=== PATIENT | female | born 1980 | race Asian ===

== ENCOUNTER 2021-02-18 10:47 | Outpatient (CLI) | payer BC, SELFPAY ==
[2021-02-18 12:02] LABS: Basophils Percent Auto 0.3 % (0.2-1.2); Eosinophils Absolute Auto 0.1 K/mm3 (0-0.3); Eosinophils Percent Auto 0.9 % (0-4.4); Hematocrit 42.8 % (37.0-47.0); Hemoglobin 13.9 g/dL (12.0-15.0); Immature Granulocyte Absolute 0.01 K/mm3 (0.00-0.031); Immature Granulocyte Percent A 0.2 % (0-0.5); Lymphocytes Absolute Auto 1.73 K/mm3 (0.9-3.2); Lymphocytes Percent Auto 29.5 % (18.3-44.2); Mean Corpuscular HGB Conc 32.5 g/dl (32-36); Mean Corpuscular Hemoglobin 29.7 pg (26-34); Mean Corpuscular Volume 91.5 fl (80-100); Mean Platelet Volume 9.3 fl (7.4-10.4); Monocytes Absolute Auto 0.5 K/mm3 (0.1-0.6); Neutrophils Absolute Auto 3.6 K/mm3 (1.3-6.7); Neutrophils Percent Auto 61.1 % (45.5-73.1); Platelet Count Result 255 k/mm3 (150-375); Red Blood Count 4.68 M/mm3 (4.2-5.4); Red Cell Distribution Width 13.2 % (11.5-14.5); White Blood Count 5.9 K/mm3 (4.5-10.0)
[2021-02-18 12:21] LABS: Alanine Aminotransferase 27 U/L (4-35); Albumin Level 4.4 g/dL (3.5-5.1); Alkaline Phosphatase 54 U/L (38-126); Anion Gap 6 mmol/L (8-16); Aspartate Amino Transferase 29 U/L (14-36); Bilirubin,Total 0.6 mg/dL (0.2-1.3); Blood Urea Nitrogen 10 mg/dL (7-17); Carbon Dioxide 27 mmol/L (22-30); Chloride 104 mmol/L (98-107); Cholesterol 247 mg/dL (0-200); Estimated Glomerular Filt Rate > 60; Glucose 85 mg/dL (65-110); HDL Direct 95 mg/dL; Potassium 3.8 mmol/L (3.4-5.0); Sodium 137 mmol/L (137-145); Triglycerides 69 mg/dL (<150)
[2021-02-18 12:33] LABS: LDL Cholesterol Direct 129 mg/dL
[2021-02-18 12:51] LABS: Thyroid Stimulating Hormone 0.889 uIU/mL (0.465-4.680)
[2021-02-18 13:17] LABS: Hemoglobin A1C 5.3 % (<5.7)
[2021-02-18 13:27] LABS: Folic Acid 15.3 ng/mL (2.76->20)
[2021-02-18 13:39] LABS: Iron 61 ug/dL (37-170)
[2021-02-18 13:48] LABS: Percent Iron Saturation 15 % (20-50)
[2021-02-18 14:14] LABS: Ferritin 7.96 ng/mL (6.24-137); Vitamin D 25 Hydroxy 41.3 ng/mL
[2021-02-20 04:13] LABS: Sex Hormone Binding Globulin 195 nmol/L (17-124)
[2021-02-21 09:34] LABS: DHEA-Sulfate 67 mcg/dL (19-231)
[2021-02-22 14:37] LABS: Testosterone Free 1.3 pg/mL (0.1-6.4); Testosterone Total 24 ng/dL (2-45)
[2021-02-23 15:05] LABS: FSH 4.8 mIU/mL (***); LH 1.8 mIU/mL (***); Prolactin 5.7 ng/mL (***)
[2021-02-28 04:26] LABS: Estradiol, Ultrasensitive 193 pg/mL
== END 2021-02-18 10:48 | disposition home or self-care (01) ==
PROVIDERS: PCP Family Medicine; Visit Provider Obstetrics & Gynecology
DX: N92.6 Irregular menstruation, unspecified (principal)
CPT/HCPCS: 36415; 80053; 80061; 82306; 82607; 82627; 82670; 82728; 82746; 83001; 83002; 83036; 83498; 83540; 83550; 84146; 84270; 84402; 84403; 84443; 85025

== ENCOUNTER 2024-09-06 11:48 | Emergency (ER) | payer BC, OTHER, SELFPAY ==
[2024-09-06 12:07] VITALS: BP 127/79; PULSE 72; RESP 16; TEMP 36.5; O2SAT 100
--- NOTE | 2024-09-06 12:25 | ED.GENADULT ---
HPI - General Adult General Chief complaint: Chest Pain Stated complaint: Chest Pain Source: patient Mode of arrival: ambulatory Limitations: no limitations History of Present Illness HPI narrative: Patient presents for evaluation of chest pain. Symptom onset yesterday morning. Pain caused her to wake from sleep. Throughout the day her pain subsided. She contacted her primary care provider who recommended she go to the emergency department. She did not follow through with that recommendation. She indicates she has had intermittent pain since that time, primarily with a dull sensation in the sternum and on the left side. On the way here today she experienced a sharp pain in her sternum. She rates her pain currently is 2-3 on a scale of 1-10. She denies any shortness of breath, leg swelling, cough. She had similar symptoms many years ago but never had it investigated. Her father had a stroke in the past. She does not smoke and denies illicit drug use. Related Data Home Medications ?Medication ?Instructions ?Recorded ?Confirmed ?Last Taken ?Type No Home Medications 09/06/24 09/06/24 Unknown History Allergies Allergy/AdvReac Type Severity Reaction Status Date / Time No Known Allergies Allergy Verified 09/06/24 11:59 Review of Systems Review of Systems: CONSTITUTIONAL: Denies fever, chills, or sweats. EYES: Denies visual changes, redness, or discharge. ENT: Denies rhinorrhea, congestion, sore throat, or otalgia. CARDIOVASCULAR: reports chest pain. Denies palpitations, or edema. RESPIRATORY: Denies cough or dyspnea. GASTROINTESTINAL: Denies abdominal pain, nausea, vomiting, or diarrhea. GENITOURINARY: Denies dysuria or hematuria. SKIN: Denies rash or itching. MUSCULOSKELETAL: Denies back pain, joint pain, or myalgia. NEUROLOGIC: Denies headache, numbness, dizziness, or weakness. PSYCHIATRIC: Denies anxiety or depression. [facility] Past Medical History Medical History No pertinent past medical history Surgical History Surgical History No pertinent past surgical history Family History Family History Father Cerebrovascular accident Social History Social History Smoking status: Never smoker Alcohol intake: current Alcohol use details: social Substance use: never Living arrangements: with family Gender identity (if verbalized by the patient): Female Sexual Orientation (if Verbalized by the Patient): Straight or Heterosexual Exam Narrative: GENERAL: Well-appearing, well-nourished, and in no acute distress. HEAD: Normocephalic, atraumatic. EYES: PERRLA and EOMI. ENT: Nares clear, no rhinorrhea or epistaxis. Mucous membranes moist. Oropharynx without tonsillar hypertrophy exudate or other lesions. Bilateral TMs pearly wisdom nonbulging NECK: Supple. No adenopathy or masses. No carotid bruits or JVD CHEST: Clear to auscultation. No respiratory distress. No wheezes rales or rhonchi HEART: Regular rate and rhythm. No murmur heard. Normal peripheral pulses. ABDOMEN: Soft, nontender, nondistended, normal active bowel sounds. EXTREMITIES: Normal range of motion. No edema. SKIN: Warm, dry, no rash. NEURO: No focal deficits. Alert and oriented x3. PSYCH: Normal mood and affect. Course Course Emergency Course: this is a 43-year-old female who presented for evaluation of chest pain. EKG showed sinus rhythm with right bundle branch block and left anterior fascicular block. I recommended she go to the hospital for further evaluation treatment. She is agreeable to this plan. [place] is her facility of choice. I contacted the emergency department at [facility] and spoke with provider Ghislaine Main, who indicated that Dr Bryant will accept pt for transfer there. Pt transferred via private vehicle. Level of Care: Express Care Visit Vital Signs Vital signs: Vital Signs Temperature 36.5 C 09/06/24 12:07 Pulse Rate 72 09/06/24 12:07 Respiratory Rate 16 09/06/24 12:07 Blood Pressure 127/79 09/06/24 12:07 Pulse Oximetry 100 09/06/24 12:07 Temperature 36.5 C 09/06/24 12:07 Pulse Rate 72 09/06/24 12:07 Respiratory Rate 16 09/06/24 12:07 Blood Pressure 127/79 09/06/24 12:07 Pulse Oximetry 100 09/06/24 12:07 Medical Decision Making Vital Signs Vital Signs: Vital Signs Temperature 36.5 C 09/06/24 12:07 Pulse Rate 72 09/06/24 12:07 Respiratory Rate 16 09/06/24 12:07 Blood Pressure 127/79 09/06/24 12:07 Pulse Oximetry 100 09/06/24 12:07 Temperature 36.5 C 09/06/24 12:07 Pulse Rate 72 09/06/24 12:07 Respiratory Rate 16 09/06/24 12:07 Blood Pressure 127/79 09/06/24 12:07 Pulse Oximetry 100 09/06/24 12:07 ECG Data EKG #1: ECG completion date: 09/06/24 ECG completion time: 12:04 Interpretation: sinus rhythm, rate 60, incomplete right bundle branch block, left anterior fascicular block. Discharge Plan Discharge Clinical Impression: Chest pain Patient Disposition: Acute Care Hospital Condition: Stable Instructions: Antibiotic Form, Chest Pain (ED) Patient Language: Hungarian Prescriptions: No Action No Home Medications Time of Disposition: 12:21
--- NOTE | 2024-09-06 12:31 | ECG_ITS ---
Test Date: 2024-09-06 12:04:33 Measurements Intervals Adin Rate: 60 P: 59 HI: 146 QRS: -56 QRSD: 104 T: 40 QT: 417 QTc: 418 Interpretive Statements SINUS RHYTHM LOW QRS VOLTAGE IN PRECORDIAL LEADS [QRS DEFLECTION < 1.0 mV IN CHEST LEADS] INCOMPLETE RIGHT BUNDLE BRANCH BLOCK [90+ ms QRS DURATION, TERMINAL R IN V1/V2, 40+ ms S IN I/aVL/V4/V5/V6] LEFT ANTERIOR FASCICULAR BLOCK [QRS AXIS <= -45, QR IN I, RS IN II] No previous ECG available for comparison Electronically Signed On 09-06-2024 14:14:22 CDT by Linda Wright
== END 2024-09-06 12:22 | disposition short-term general hospital (02) ==
PROVIDERS: Emergency Provider Nurse Practitioner
DX: R07.9 Chest pain, unspecified (principal); I45.2 Bifascicular block
CPT/HCPCS: 93005; 99213; G0463

== ENCOUNTER 2024-09-06 12:50 | Emergency (ER) | payer OTHER, SELFPAY ==
--- NOTE | ~2024-09-06 | XR_ITS ---
EXAMINATION: XR chest 2V DATE: 09/06/2024 13:12 INDICATION: Chest pain TECHNIQUE: PA and lateral views of the chest were obtained. COMPARISON: None FINDINGS: Subtle interstitial and airspace opacities in the right upper lung zone suspicious for pneumonia. Nip ple shadows project over the bilateral lower lung zones. No other airspace opacities, pulmonary edema , pleural effusion or pneumothorax. The cardiomediastinal silhouette is normal. Mild thoracolumbar de xtrocurvature. IMPRESSION: 1. Subtle opacities in the right upper lobe suspicious for pneumonia. Reviewed, dictated and finalized at location A.
--- NOTE | 2024-09-06 12:53 | ECG_ITS ---
Test Date: 2024-09-06 12:56:51 Measurements Intervals Garrett Rate: 57 P: 58 NV: 149 QRS: -51 QRSD: 97 T: 37 QT: 420 QTc: 412 Interpretive Statements SINUS BRADYCARDIA INCOMPLETE RIGHT BUNDLE BRANCH BLOCK [90+ ms QRS DURATION, TERMINAL R IN V1/V2, 40+ ms S IN I/aVL/V4/V5/V6] LEFT ANTERIOR FASCICULAR BLOCK [QRS AXIS <= -45, QR IN I, RS IN II] Compared to ECG 09/06/2024 12:04:33 Sinus rhythm no longer present Electronically Signed On 09-06-2024 14:15:00 CDT by Linda Wright
--- OUTSIDE RECORDS SUMMARY | 2024-09-06 12:53 | XMS_ITS | Clinical Summary ---
Author Organization [facility] Address [address] [place] [address] Phone Care Team Providers Care Registered Private Duty Nurse Name Role Phone Provider, None Primary Care Provider Unavailabl e Allergies No known active allergies Medications No known medications Social History Tobacco Use Types Packs/Day Years Used Date Smoking Tobacco: Never Alcohol Use Standard Drinks/Week Comments Yes 0 (1 standard drink = 0.6 oz pur e alcohol) Comments No Sex and Gender Information Value Date Recorded Sex Assigned at Not on file Legal Sex Female 8:01 AM HEART DOCTOR Gender Identity Not on file Sexual Orientation Not on file Last Filed Vital Signs Vital Sign Reading Time Taken Comments Blood Pressure 121/70 03/10/2016 9:38 AM HEART DOCTOR Pulse 64 03/10/2016 9:45 AM HEART DOCTOR Temperature 35.8 C (96.5 F) 03/10/2016 8:10 AM HEART DOCTOR Respiratory Rate 14 03/10/2016 8:10 AM HEART DOCTOR Oxygen Saturation 100% 03/10/2016 9:45 AM HEART DOCTOR Inhaled Oxygen Concentration - - Weight 53.5 kg (118 lb) 03/10/2016 8:10 AM HEART DOCTOR Height 157.5 cm (5' 2 ) 03/10/2016 8:10 AM HEART DOCTOR Body Mass Index 21.58 03/10/2016 8:10 AM HEART DOCTOR Plan of Treatment Not on file Care Teams Registered Private Duty Nurse Relationship Specialty Start Date End Date Provider, None [place] PCP - General 03/10/16
--- OUTSIDE RECORDS SUMMARY | 2024-09-06 12:53 | XMS_ITS | Encounter Summary ---
Author Organization [facility] Address [address] [place] [address] Care Team Providers Care Manager Data Warehouse Name Role Phone Kendall Ayala MD Primary Care Provider [phone] Reason for Visit * Reason Onset Date Comments Appointment Request 09/05/2024 Encounter Details Date Type Department Care Team (Late st Contact Info) Description 09/05/2024 Telephone [facility] Medical [facility] Multispecialty Care [facility] [address] [place] [address] [address] [place] [address] [place] [address] [place] [address] [address] [place], [place] [id number] Appointment Request Social History Tobacco Use Types Packs/Day Years Used Date Smoking Tobacco: Never Smokeless Tobacco: Never Comments:Counseled by Dr. Katlin uribe. Alcohol Use Standard Drinks/Week Comments Not Currently 1.7 (1 standard drink = 0.6 oz p ure alcohol) AUDIT-C Answer Date Recorded Q1: How often do you have a drink containing alc ohol? Monthly or less 02/14/2024 Q2: How many drinks containi ng alcohol do you have on a typical day when you are drinking? 1 or 2 02/14/2024 Q3: How often do you have si x or more drinks on one occasion? Never 02/14/2024 PHQ-2 Answer Date Recorded Patient Health Questionnaire-2 Score 0 02/14/2024 Comments No Sex and Gender Information Value Date Recorded Sex Assigned at Female 04/02/2024 8:01 AM DOUGH MIXING MACHINE OPERATOR Legal Sex Female 4:07 PM CDT Gender Identity Female 04/02/2024 8:01 AM DOUGH MIXING MACHINE OPERATOR Sexual Orientation Straight 04/02/2024 8: 01 AM DOUGH MIXING MACHINE OPERATOR documented as of this encounter Progress Notes * Rosa Rae - 09/05/2024 12:02 PM CDT This patient called requesting an appointment because she has been having chest pain since 4:[address] Kendall Ayala the patients provider have the patient go to the emergency room for evaluation. This was relayed to the patient and she voiced understanding. documented in this encounter Plan of Treatment Not on file documented as of this encounter Visit Diagnoses Not on filedocumented in this encounter Additional Health Concerns Assessment Noted Time PHQ-9 Depression Total Score: 0 02/14/20 24 6:31 PM CDT documented as of this encounter Care Teams Manager Data Warehouse Relationship Specialty Start Date End Date Kendall Ayala MD [address] [address] PCP - General INTERNAL MEDICINE 12/16/23 documented as of this encounter
--- OUTSIDE RECORDS SUMMARY | 2024-09-06 12:53 | XMS_ITS | Clinical Summary ---
Author Organization [facility] Address [address] [place] [address] Care Team Providers Care Caddymaster Name Role Phone Evangelista Waldrop MD Primary Care Provider [phone] Source Comments [facility],non-owned Affiliates and Associated Physician Practices is amultiple site organization consisting of ambulatory clinics and hospital sitesin [place], [place], [place] and [place]. This disclosure is being madepursuant to the Care Everywhere program and may not contain all information available regarding this patient. Last updated 18.[facility] [employer] Social History Tobacco Use Types Packs/Day Years Used Date Smoking Tobacco: Never Assessed Comments Unknown Sex and Gender Information Value Date Recorded Sex Assigned at Not on file Legal Sex Female 4:52 AM BINDER OPERATOR Gender Identity Not on file Sexual Orientation Not on file Plan of Treatment Health Maintenance Due Date Last Done Comments LIPID TESTING 1979 MAMMOGRAM 1979 HIV SCREENING 11/29/1994 HEPATITIS C SCREENING 11/25/1997 DTAP/TDAP/TD VACCINES (1 - Tdap) 11/29/1998 HEPATITIS B VACCINE (1 of 3 - 19+ 3-dose series) 11/29/1998 COVID-19 VACCINE (2023-2 5 season) 2024 DEPRESSION SCREENING 05/02/2024 INFLUENZA VACCINE (Season Ended) 2024 ZOSTER VACCINE (1 of 2) 11/29/2029 HIB VACCINE Aged Out No longer eligi ble based on patient's age to complete this topic HPV VACCINE Aged Out No longer eligi ble based on patient's age to complete this topic MENINGOCOCCAL (Group B) VACC INE SHARED DECISION-MAKING Aged Out No longer eligibl e based on patient's age to complete this topic MENINGOCOCCAL GROUPS A/C/Y/W VACCINE Aged Out No longer eligible b ased on patient's age to complete this topic PNEUMOCOCCAL VACCINE Aged Out No long er eligible based on patient's age to complete this topic Care Teams Caddymaster Relationship Specialty Start Date End Date Evangelista Waldrop MD [address] [facility] [address] [facility] [address] [place] [address] PCP - General Family Medicine 03/22/19
--- OUTSIDE RECORDS SUMMARY | 2024-09-06 12:53 | XMS_ITS | Encounter Summary ---
Author Organization [facility] Address [address] [place] [address] Care Team Providers Care Application Integration Architect Name Role Phone Kendall Ayala MD Primary Care Provider [phone] Reason for Visit * Reason Onset Date Comments Chest Pain 09/05/2024 Encounter Details Date Type Department Care Team (Late st Contact Info) Description 09/05/2024 Telephone [facility] Medical Group Multispecialty Care - [place] [address] [place] [address] [address] [place] [address] Kendall Ayala MD [address] [facility] [address] [place] [address] Chest Pain Social History Tobacco Use Types Packs/Day Years [...] Sex Assigned at Female 04/02/2024 8:01 AM DOCUMENT MANAGEMENT ANALYST Legal Sex Female 4:07 PM CDT Gender Identity Female 04/02/2024 8:01 AM DOCUMENT MANAGEMENT ANALYST Sexual Orientation Straight 04/02/2024 8: 01 AM DOCUMENT MANAGEMENT ANALYST documented as of this encounter Progress Notes * Lizeth Jo MA - 09/05/2024 11:54 AM CDT Rosa informed us that pt called in with chest pain since 2am this morning. After speaking with Dr. Ayala pt was informed to go to the ER and call us after d/c. documented in this encounter Plan of Treatment Not on file documented as of this encounter Visit Diagnoses Not on filedocumented in this encounter Additional Health Concerns Assessment Noted Time PHQ-9 Depression Total Score: 0 02/14/20 24 6:31 PM CDT documented as of this encounter Care Teams Application Integration Architect Relationship Specialty Start Date End Date Kendall Ayala MD [address] [facility] [address] [place] [address] PCP - General INTERNAL MEDICINE 12/16/23 documented as of this encounter
--- OUTSIDE RECORDS SUMMARY | 2024-09-06 12:53 | XMS_ITS | Encounter Summary ---
Author Organization [facility] Address [facility]ly [facility] [place] [address] Care Team Providers Care Corn Press Operator Name Role Phone Kendall Ayala MD Primary Care Provider [phone] Encounter Details Date Type Department Care Team (Late st Contact Info) Description 04/05/2024 [email or web address] Message Enc [facility] Medical Group Multispecialty Care - [address] [place] [address] Danal d/b/a [employer], [facility] Provider test result Social History Tobacco Use Types Packs/Day Years [...] Sex Assigned at Female 04/02/2024 8:01 AM HOUSE DESIGNER Legal Sex Female 4:07 PM CDT Gender Identity Female 04/02/2024 8:01 AM HOUSE DESIGNER Sexual Orientation Straight 04/02/2024 8: 01 AM HOUSE DESIGNER documented as of this encounter Plan of Treatment Not on file documented as of this encounter Visit Diagnoses Not on filedocumented in this encounter Additional Health Concerns Assessment Noted Time PHQ-9 Depression Total Score: 0 02/14/20 6:31 PM CDT documented as of this encounter Care Teams Corn Press Operator Relationship Specialty Start Date End Date Kendall Ayala MD [address] [address] PCP - General INTERNAL MEDICINE 12/16/23 documented as of this encounter
--- OUTSIDE RECORDS SUMMARY | 2024-09-06 12:53 | XMS_ITS | Clinical Summary ---
Author Organization [facility] Address [address] [place] [address] Phone Care Team Providers Care Stone Setter Apprentice Name Role Phone Unavailable Primary Care Provider Unavailabl e Allergies No known active allergies Medications ibuprofen (MOTRIN) 600 mg tablet Take 1 Tab by mouth every 6 hours as needed for Pain, Mild. 30 Tab 1 05/27/2013 Active Active Problems Problem Noted Date Diagnosed Date 05/25/2013 boy, for circ 05/25/2013 Nausea and vomiting 07/05/2011 Lightheadedness 07/05/2011 ASCUS on Pap smear 12/12/2009 Immunizations Immunization Administration Dates Next Due (ADACEL/BOOSTRIX)(10 YR UP) TDAP VACCINE, 0.5ML, IM 09/30/2011 Family History Medical History Relation Name Comments Healthy Brother 1 Healthy Brother 2 Healthy Brother 3 Healthy Brother 4 Healthy Daughter Hypertension Father Stroke Father Diabetes Maternal Grandmother Hypertension Maternal Grandmother SIDS Mother Diabetes Paternal Grandmother Healthy Sister 1 Healthy Sister 2 Healthy Son Relation Name Status Comments Brother 1 Alive Brother 2 Alive Brother 3 Alive Brother 4 Alive Daughter Alive Father Maternal Grandfather Maternal Grandmother Mother Alive Paternal Grandfather Paternal Grandmother Sister 1 Alive Sister 2 Alive Son Alive Social History Tobacco Use Types Packs/Day Years Used Date Smoking Tobacco: Never Smokeless Tobacco: Never Tobacco Cessation:Counseling Given: No Alcohol Use Standard Drinks/Week Comments Yes 0 (1 standard drink = 0.6 oz pur e alcohol) occasionally Comments No Sex and Gender Information Value Date Recorded Sex Assigned at Female 03/24/2024 11:19 AM ON LINE CSR Legal Sex Female 5:52 AM ON LINE CSR Gender Identity Female 03/24/2024 11:19 AM ON LINE CSR Sexual Orientation Not on file Occupation Industry Job Start Date Job End Date Not on file Not on file Not on file Not on file Last Filed Vital Signs Vital Sign Reading Time Taken Comments Blood Pressure 110/78 02/21/2017 1:56 PM CDT Pulse 68 05/27/2013 7:00 AM ON LINE CSR Temperature 36.7 C (98 F) 05/27/2013 7:00 AM ON LINE CSR Respiratory Rate 20 05/27/2013 7:00 AM ON LINE CSR Oxygen Saturation 100% 05/25/2013 12:59 AM ON LINE CSR Inhaled Oxygen Concentration - - Weight 54.4 kg (120 lb) 02/21/2017 1:56 PM CDT Height 157.5 cm (5' 2 ) 02/21/2017 1:56 PM CDT Body Mass Index 21.95 02/21/2017 1:56 PM CDT Plan of Treatment Health Maintenance Due Date Last Done Comments HEPATITIS B VACCINES (1 of 3 - 19+ 3-dose series) 11/29/1998 BREAST CANCER SCREENING 2019 PAP SMEAR 02/22/2020 02/21/2017, 03/0 07/2015, 07/03/2015, Additional history exists DTAP/TDAP/TD VACCINES (2 - Td or Tdap) 09/29/2021 09/30/2011 CERVICAL CANCER SCREENING 02/21/2022 HPV/Cotest (21-29) 02/21/2022 02/21/2017, 0 07/03/2015, 11/06/2012, Additional history exists HPV/Cotest (30-65) 02/21/2022 02/21/2017, 0 07/03/2015, 11/06/2012, Additional history exists INFLUENZA VACCINE (#1) 2023 HPV VACCINES Aged Out No longer eligi ble based on patient's age to complete this topic Procedures Procedure Name Priority Date/Time Associated Diagnosis Comments CERV/VAG CYTOPATH, THIN PREP AND HPV W/RFLX GENOTYPES 16, 18/45 Routine 02/21/2017 2:31 PM CDT Postcoital bleeding from Last 3 Months or Most Recently Relevant to Health Maintenance Results * (ABNORMAL) CERV/VAG CYTOPATH, THIN PREP AND HPV W/RFLX GENOTYPES 16, 18/45 (CP) (02/21/2017 2:31 PMCDT) CLINICAL INFORMATION SEE COMMENT 03/01/2017 10:55 AM CDT [facility] Comment:Routine exam LAST MENSTRUAL PERIOD SEE COMMENT 03/01/2017 10:55 AM CDT [facility] Comment:INFORMATION NOT PROV IDED PREV PAP: SEE COMMENT 03/01/2017 10:55 AM CDT [facility] Comment:07/03/2015 NIL PREV BX: SEE COMMENT 03/01/2017 10:55 AM CDT [facility] Comment:INFORMATION NOT PROV IDED SOURCE Endocervix 03/01/2017 10:55 AM CDT [facility] ADEQUACY: SEE COMMENT 03/01/2017 10:55 AM CDT [facility] Comment: Satisfactory for evaluation. Endocervical/transformation zone component present. Age and/or menstrual status not provided PAP INTERP SEE COMMENT 03/01/2017 10:55 AM CDT [facility] Comment:Negative for intraep ithelial lesion or malignancy. COMMENT SEE COMMENT 03/01/2017 10:55 AM CDT [facility] Comment: This Pap test has been evaluated with computer assisted technology. CAR WRECKER: SEE COMMENT 2016 10:55 AM CDT [facility] Comment: MMW, CT(ASCP) CT screening location: [place] [address] Administration MICHEL Maynard [facility] REVIEW CAR WRECKER: SEE COMMENT 03/01/2017 10:55 AM CDT [facility] Comment: MLO, CT(ASCP) CT screening location: [place] [address] Administration MICHEL Maynard146 HPV E6/E7 Detected(A) Not Detected 03/01/2017 10:55 AM CDT [facility] Comment: This test was performed using the APTIMA HPV Assay ([employer] This assay detects E6/E7 viral messenger RNA (mRNA) from 14 high-risk HPV types (16,18,31,33,35,39,45,51,52,56,58,59,66,68). Genital SWAB OF ENDOCERVIX / Unknown Collection / Unknown 02/21/2017 2:31 PM CDT 02/21/2017 5:27 PM CDT Narrative [facility] - 03/01/2017 10:55 AM CDT Performing Organization Information: Site ID: [id number] Name: [facility] Address: [address] [address] [place] [place] [address] Director: Jonel Pang MD Amanda Rodriguez NP PATHOLOGY/CYTOLOGY ORDERABLES F inal Result [facility] from Last 3 Months or Most Recently Relevant to Health Maintenance Insurance [facility] BLUE ACCESS/TRUE BLUE PPO Advance Directives For more information, please contact: [phone] * Full Code (Latest Code Status on File) Date Activated Date Inactivated Comments 05/25/2013 7:48 AM 05/27/2013 2:39 PM * Full Code Date Activated Date Inactivated Comments 05/25/2013 12:26 AM 05/25/2013 7:48 AM * Full Code Date Activated Date Inactivated Comments 05/24/2013 11:44 PM 05/25/2013 12:26 AM * Full Code Date Activated Date Inactivated Comments 09/29/2011 3:43 AM 10/01/2011 12:22 PM * Full Code Date Activated Date Inactivated Comments 09/29/2011 1:10 AM 09/29/2011 3:43 AM
--- OUTSIDE RECORDS SUMMARY | 2024-09-06 12:53 | XMS_ITS | Clinical Summary ---
Author Organization [facility] Address [facility] [place] [address] Care Team Providers Care Boilermaker Fitter Name Role Phone Kendall Ayala MD Primary Care Provider [phone] Allergies No known active allergies Medications Albuterol-Budeso nide (AIRSUPRA) 90-80 MCG/ACT AerosolIndicatio ns:Mild intermittent reactive airway disease without complication (HHS/HCC) Inhale 2 puffs into the lungs every 6 (six) hours. Airsupra is administered as a dose of 2 inhalations (puffs) as needed. Do not use more than 12 inhalations (6 doses) in a 24-hour period. 32.1 g 2 4 Active Active Problems No known active problems Encounters Date Type Department Care Team Description 09/05/[address] [place], [place] [id number] Kendall Ayala MD Appointment Request 09/05/2024 Telephone [facility] [place] [address] [facility] [address] [place] [address] Kendall Ayala MD Chest Pain from Last 3 Months Immunizations Immunization Administration Dates Next Due Influenza Adult (Generic) 07/13/2019 Tdap (Adacel) 03/14/2024 Tdap (Generic) 09/30/2011 Family History Medical History Relation Comments Hypertension Brother 1 Hypertension Brother 2 Hypertension Father Diabetes Maternal Aunt Arthritis Maternal Grandmother Alcohol Abuse Paternal Uncle Hypertension Sister Relation Status Comments Brother 1 Brother 2 Father Maternal Aunt Maternal Grandmother Paternal Uncle Sister Social History Tobacco Use Types Packs/Day Years Used Date Smoking Tobacco: Never Smokeless Tobacco: Never Tobacco Cessation:Counseling Given: Yes Comments:Counseled by Dr. Ayala. Alcohol Use Standard Drinks/Week Comments Not Currently [...] Sex Assigned at Female 04/02/2024 8:01 AM SALES AND MERCHANDISING ASSOCIATE Legal Sex Female 4:07 PM CDT Gender Identity Female 04/02/2024 8:01 AM SALES AND MERCHANDISING ASSOCIATE Sexual Orientation Straight 04/02/2024 8: 01 AM SALES AND MERCHANDISING ASSOCIATE Last Filed Vital Signs Vital Sign Reading Time Taken Comments Blood Pressure 128/76 03/14/2024 10:36 AM SALES AND MERCHANDISING ASSOCIATE Pulse 93 03/14/2024 10:36 AM SALES AND MERCHANDISING ASSOCIATE Temperature 36.5 C (97.7 F) 03/14/2024 10:36 AM SALES AND MERCHANDISING ASSOCIATE Respiratory Rate 18 03/14/2024 10:36 AM SALES AND MERCHANDISING ASSOCIATE Oxygen Saturation 100% 03/14/2024 10:36 AM SALES AND MERCHANDISING ASSOCIATE Inhaled Oxygen Concentration - - Weight 58.1 kg (128 lb) 03/14/2024 10:36 AM SALES AND MERCHANDISING ASSOCIATE Height 157.5 cm (5' 2 ) 03/14/2024 10:36 AM SALES AND MERCHANDISING ASSOCIATE Body Mass Index 23.41 03/14/2024 10:36 AM SALES AND MERCHANDISING ASSOCIATE Plan of Treatment Health Maintenance Due Date Last Done Comments Cervical Cancer Screening Pa p Smear (Age 30 to 64) Every 3 Years 1979 Hepatitis B Vaccines (1 of 3 - 19+ 3-dose series) 11/29/1998 Pneumococcal Vaccine: Pediatrics (0 to 5 Years) and At-Risk Patients (6 to 49 Years) (1 of 2 - PCV) 11/29/1998 Cervical Cancer Screening Pa p with HPV Testing (Age 30 to 64) Every 5 Years 11/29/2009 Cervical Cancer Screening wi HPV 11/29/2009 COVID-19 Vaccine (3 - 2023-2 5 season) 2024 04/13/2021, 07/10/2020 PHQ-2 (Physician [place]) 05/02/2024 02/14/2024 Annual Physical 02/13/2025 02/14/2024 Mammogram Screening 03/22/2026 03/22/2024 DTaP, Tdap and Td Vaccines ( 3 - Td or Tdap) 03/14/2034 03/14/2024, 09/30/2011 Hepatitis C Completed 02/14/2024 HPV Vaccines Aged Out No longer eligi ble based on patient's age to complete this topic Meningococcal B Vaccine Aged Out No l onger eligible based on patient's age to complete this topic Meningococcal Vaccine Aged Out No janice jil eligible based on patient's age to complete this topic RSV Immunizations Under 20 Months Aged Out No longer eligible b ased on patient's age to complete this topic Procedures Procedure Name Priority Date/Time Associated Diagnosis Comments MG SCREENING W JAGDEEP DAYANARA DIGI Routine 03/22/2024 10:30 AM SALES AND MERCHANDISING ASSOCIATE Encounter for screening mammogram for malignant neoplasm of breast HEPATITIS C ANTIBODY Routine 02/14/2024 3:53 PM CDT Annual physical exam Establishing care with new doctor, encounter for General medical exam Encounter for hepatitis C screening test for low risk patient from Last 3 Months or Most Recently Relevant to Health Maintenance Results * MG SCREENING W JAGDEEP DAYANARA DIGI (03/22/2024 10:30 AM SALES AND MERCHANDISING ASSOCIATE) Anatomical Region Laterality Modality Breast Bilateral Mammography 04/03/2024 1:25 PM SALES AND MERCHANDISING ASSOCIATE Impressions 04/03/2024 1:27 PM SALES AND MERCHANDISING ASSOCIATE IMPRESSION: No mammographic evidence of malignancy. RECOMMENDATION: Routine ScreeningBilateral OVERALL IMAGING ASSESSMENT: ACR BI-RADS 1 - NEGATIVE. Ordered By: KENDALL AYALA Interpreted By: Benson Ramirez, 04/03/2024 1:25 PM Narrative 04/03/2024 1:27 PM SALES AND MERCHANDISING ASSOCIATE [facility] [address] [place] [address] EXAMINATION: MG SCREENING W JAGDEEP OSBORN INDICATIONS: Screening TECHNIQUE: Digital full field CC and MLO screening mammography bilaterally to include 3-D Tomosynthesis technique. This study was read with the assistance of a computer-aided detection system. HISTORY: Unable to locate/obtained prior imaging. Reestablishing baseline. No documented personal or first degree family history of breast cancer. No documented prior breast procedure or current breast complaint. COMPARISON: None. Baseline examination. TISSUE DENSITY: The breasts are heterogeneously dense, which may obscure small masses. FINDINGS: No suspicious microcalcification, mass, or focal asymmetry .No architectural distortion. No axillary adenopathy. us Kendall Ayala MD MAMMO Final Result * HEPATITIS C ANTIBODY (02/14/2024 3:53 PM CDT) HEPATITIS C AB NON-REACTI VE NON-REACT AMAURI 02/14/2024 10:22 PM CDT [facility] Comment: ANTIBODIES TO HCV NOT DETECTED. DOES NOT EXCLUDE THE POSSIBILITY OF EXPOSURE TO HCV. 02/14/2024 3:53 PM CDT us Kendall Ayala MD LABORATORY Final Result [facility] [address] [place] [address], [id number] from Last 3 Months or Most Recently Relevant to Health Maintenance Insurance [facility] Care Teams Boilermaker Fitter Relationship Specialty Start Date End Date Kendall Ayala MD [address] [address] PCP - General INTERNAL MEDICINE 12/16/23
--- NOTE | 2024-09-06 13:02 | ED.CHESTPAIN ---
HPI - Chest Pain General Chief Complaint: Chest Pain Stated Complaint: chest pain Time Seen by Provider: 09/06/24 12:54 History of Present Illness HPI narrative: 43-year-old female with no pertinent past medical history presenting to the emergency room with chief complaint of chest pain in the center of her chest radiating towards her back. Patient states the symptoms have been going on for about 2 days now, worsening with leaning and laying on her left side. She has not tried any medications at home. Did not take any Tylenol, ibuprofen or Tums. Went to urgent care and was told to go the emergency department she was transferred here. Patient states that the pain is mild and uncomfortable associated with some lightheadedness but no shortness of breath, nausea, vomiting, abdominal pain, pelvic pain, GERD like symptoms or burning. No trauma or injury. No history of cardiac disease to her knowledge. She has no medical history and does not take any medications at this time. Related Data Allergies Allergy/AdvReac Type Severity Reaction Status Date / Time No Known Allergies Allergy Verified 09/06/24 11:59 Review of Systems Review of Systems: As reviewed above in HPI [facility] Past Medical History Medical History No pertinent past medical history Surgical History Surgical History No pertinent past surgical history Family History Family History Father Cerebrovascular accident Social History Social History Smoking status: Never smoker Alcohol intake: current Alcohol use details: social Substance use: never Living arrangements: with family Gender identity (if verbalized by the patient): Female Sexual Orientation (if Verbalized by the Patient): Straight or Heterosexual Exam Narrative: GENERAL: [Well-appearing, well-nourished, and in no acute distress.] HEAD: [Normocephalic, atraumatic.] EYES: [PERRLA and EOMI.] ENT: Nares clear, no rhinorrhea or epistaxis. Mucous membranes moist. NECK: Supple. CHEST: [Clear to auscultation. No respiratory distress.] Reproducible pain with palpation of the sternum, no crepitus HEART: [Regular rate and rhythm]. No murmur heard. [Normal peripheral pulses.] ABDOMEN: [Soft, nondistended], [nontender], [No rigidity or guarding] EXTREMITIES: Normal range of motion. [No edema.] SKIN: Warm, dry, no rash. NEURO: [No focal deficits]. Alert and oriented [x3.] PSYCH: [Normal mood and affect.] Course Vital Signs Vital signs: Vital Signs Temperature 36.8 C 09/06/24 13:04 Pulse Rate 67 09/06/24 13:04 Respiratory Rate 16 09/06/24 13:04 Blood Pressure 122/77 09/06/24 13:04 Pulse Oximetry 100 09/06/24 13:04 Oxygen Delivery Room Air 09/06/24 13:04 Temperature 36.8 C 09/06/24 13:04 Pulse Rate 67 09/06/24 13:04 Respiratory Rate 16 09/06/24 13:04 Blood Pressure 122/77 09/06/24 13:04 Pulse Oximetry 100 09/06/24 13:04 Oxygen Delivery Room Air 09/06/24 13:04 MDM - Chest Pain MDM Narrative Medical decision making narrative: 43-year-old female with no significant past medical history presenting to the emergency department with chest pain radiating towards her back. Symptoms going on for 2 days. No associated symptoms such as nausea, vomiting, syncope, shortness of breath, abdominal pain, burning pain or GERD symptoms. She has an unremarkable physical examination with normal vital signs, strong symmetric 2+ pulses, pain in the sternum was reproducible palpation but there is no overlying skin changes. Given her lack of risk factors and normal vital signs here with symptoms going on for 2 days suspicion more likely is musculoskeletal chest pain or musculoskeletal etiology such as costochondritis rather than coronary disease or cardiac etiology otherwise. Low suspicion thromboembolic disease such as PE and she meets low Wells criteria to rule this out safely. Patient was given a combination of Toradol and Pepcid and fluid bolus. Laboratory studies were sent off including CBC, CMP, lipase, troponin. Chest x-ray and EKG obtained. X-rays independently reviewed shows a right-sided upper lobe pneumonia confirmed by Radiology. Workup otherwise shows no leukocytosis or anemia. Normal platelet count. Negative troponin. EKG without any signs of acute ischemia. Normal LFTs and renal function. Normal electrolytes. Patient given doxycycline for community-acquired coverage with no risk factors and safely discharged home with a short course of antibiotics and primary care follow-up instructions. She was given return precautions. Medical Records Data Attestation: I reviewed the patient's medical records. Lab Data Attestation: I reviewed the patient's lab results. 09/06/24 13:02 09/06/24 13:02 Labs: Lab Results 09/06/24 Range/Units 13:02 WBC 5.3 (4.5-10.0) K/mm3 RBC 4.65 (4.2-5.4) M/mm3 Hgb 13.2 (12.0-15.0) g/dL Hct 40.6 (37.0-47.0) % MCV 87.3 (80-100) fl MCH 28.4 (26-34) pg MCHC 32.5 (32-36) g/dl RDW 13.7 (11.5-14.5) % Plt Count 265 (150-375) k/mm3 MPV 9.3 (7.4-10.4) fl Immature Gran % (Auto) 0.2 (0-0.5) % Neut % (Auto) 51.0 (45.5-73.1) % Lymph % (Auto) 35.7 (18.3-44.2) % [place] % (Auto) 10.6 H (2.6-8.5) % Eos % (Auto) 1.5 (0-4.4) % Baso % (Auto) 1.0 (0.2-1.2) % Lymph # (Auto) 1.88 (0.9-3.2) K/mm3 [place] # (Auto) 0.6 (0.1-0.6) K/mm3 Eos # (Auto) 0.1 (0-0.3) K/mm3 Baso # (Auto) 0.1 (0.0-0.1) K/mm3 Abs Immat Gran (auto) 0.01 (0.00-0.031) K/mm3 Absolute Neuts (auto) 2.7 (1.3-6.7) K/mm3 Absolute Nucleated RBC 0.000 (0.0-0.012) K/mm3 Nucleated RBC % 0.0 (0.0-0.2) % PT 13.3 (11.1-14.7) Seconds INR 1.0 APTT 30.2 (22.3-36.8) Seconds Sodium 136 L (137-145) mmol/L Potassium 3.8 (3.4-5.0) mmol/L Chloride 105 (98-107) mmol/L Carbon Dioxide 24 (22-30) mmol/L Anion Gap 7 (4-12) mmol/L BUN 9 (7-17) mg/dL Creatinine 0.64 L (0.7-1.0) mg/dL Estim Creat Clear Calc Not Reportable Estimated GFR > 60 (59 - ) Glucose 78 (65-110) mg/dL Calcium 8.9 (8.4-10.2) mg/dL Total Bilirubin 0.7 (0.2-1.3) mg/dL AST 25 (14-36) U/L ALT 20 (6-35) U/L Alkaline Phosphatase 67 (38-126) U/L Troponin I < 0.012 (0.000-0.034) ng/mL Total Protein 8.0 (6.3-8.2) g/dL Albumin 4.3 (3.5-5.1) g/dL Lipase 113 (23-300) U/L Imaging Data Attestation: I personally reviewed and interpreted this imaging study as follows: My impression: Impressions Chest X-Ray 09/06/24 13:12 IMPRESSION: 1. Subtle opacities in the right upper lobe suspicious for pneumonia. ECG Data EKG #1: Attestation: I personally reviewed and interpreted this ECG as follows: ECG completion date: 09/06/24 ECG completion time: 12:56 Prior ECG tracings: available for review Interpretation: No ST segment elevations, depressions or acute inversions. Incomplete right bundle branch block. QTC 412, QRS 97, MD 149. Rate of 57 beats per minute. Sinus bradycardia, no significant interval change compared to prior EKG. Discharge Plan Discharge Clinical Impression: Chest pain, Community acquired pneumonia Patient Disposition: Home Condition: Stable Instructions: Antibiotic Form, Chest Pain (ED), Pneumonia (ED) Additional Instructions: Your workup shows you have a right-sided upper lobe pneumonia albeit minor. Laboratory studies are all reassuring, cardiac enzyme is undetectable, EKG without any acute ischemic concerns. We will treat this with antibiotics and send you home with a 5 day course. Follow-up with regular doctor. Return with any worsening concerns. Patient Language: Kosovan Prescriptions: New doxycycline hyclate 100 mg capsule 100 mg PO BID 5 Days Qty: 10 0RF Follow-up/Referrals: PHYSICIAN,SUPERVISOR VEGETABLE FARMING [Non-Staff] - Time of Disposition: 14:27
[2024-09-06 13:04] VITALS: BP 122/77; PULSE 67; RESP 16; TEMP 36.8; O2SAT 100
[2024-09-06 13:08] LABS: Basophils Absolute Auto 0.1 K/mm3 (0.0-0.1); Eosinophils Absolute Auto 0.1 K/mm3 (0-0.3); Eosinophils Percent Auto 1.5 % (0-4.4); Hematocrit 40.6 % (37.0-47.0); Hemoglobin 13.2 g/dL (12.0-15.0); Immature Granulocyte Absolute 0.01 K/mm3 (0.00-0.031); Immature Granulocyte Percent A 0.2 % (0-0.5); Lymphocytes Absolute Auto 1.88 K/mm3 (0.9-3.2); Lymphocytes Percent Auto 35.7 % (18.3-44.2); Mean Corpuscular HGB Conc 32.5 g/dl (32-36); Mean Corpuscular Hemoglobin 28.4 pg (26-34); Mean Corpuscular Volume 87.3 fl (80-100); Mean Platelet Volume 9.3 fl (7.4-10.4); Monocytes Absolute Auto 0.6 K/mm3 (0.1-0.6); Monocytes Percent Auto 10.6 % (2.6-8.5); Neutrophils Absolute Auto 2.7 K/mm3 (1.3-6.7); Platelet Count Result 265 k/mm3 (150-375); Red Blood Count 4.65 M/mm3 (4.2-5.4); Red Cell Distribution Width 13.7 % (11.5-14.5); White Blood Count 5.3 K/mm3 (4.5-10.0)
[2024-09-06] MEDS: FAMOTIDINE 20 MG/2 ML VIAL IV PUSH (13:13)
[2024-09-06] MEDS: KETOROLAC 15 MG/ML VIAL (*BKC) IV PUSH (13:13)
[2024-09-06] MEDS: LACTATED RINGERS 1,000 ML 999 ML IV CONT (13:13)
[2024-09-06 13:17] LABS: Alanine Aminotransferase 20 U/L (6-35); Albumin Level 4.3 g/dL (3.5-5.1); Alkaline Phosphatase 67 U/L (38-126); Anion Gap 7 mmol/L (4-12); Aspartate Amino Transferase 25 U/L (14-36); Bilirubin,Total 0.7 mg/dL (0.2-1.3); Blood Urea Nitrogen 9 mg/dL (7-17); Calcium 8.9 mg/dL (8.4-10.2); Carbon Dioxide 24 mmol/L (22-30); Chloride 105 mmol/L (98-107); Estimated Glomerular Filt Rate > 60; Glucose 78 mg/dL (65-110); Lipase 113 U/L (23-300); Potassium 3.8 mmol/L (3.4-5.0); Sodium 136 mmol/L (137-145)
[2024-09-06 13:20] LABS: Prothrombin Time 13.3 Seconds (11.1-14.7)
[2024-09-06 13:21] LABS: Partial Thromboplastin Time 30.2 Seconds (22.3-36.8)
[2024-09-06 13:30] LABS: Troponin I < 0.012 ng/mL (0.000-0.034)
--- OUTSIDE RECORDS SUMMARY | 2024-09-06 13:30 | XMS_ITS | Encounter Summary ---
Author Organization [facility] Address [facility] [place] [address] Care Team Providers Care Briar Wood Sorter Name Role Phone Kendall Ayala MD Primary Care Provider [phone] Encounter Details Date Type Department Care Team (Late st Contact Info) Description 04/05/2024 Spendji Message Enc [facility] Multispecialty [facility] - [address] [place] [address] [place], [facility] Provider test result Social History [...] Sex Assigned at Female 04/02/2024 8:01 AM MECHANICAL DRAFTER Legal Sex Female 4:07 PM CDT Gender Identity Female 04/02/2024 8:01 AM MECHANICAL DRAFTER Sexual Orientation Straight 04/02/2024 8: 01 AM MECHANICAL DRAFTER documented as of this encounter Plan of Treatment Not on file documented as of this encounter Visit Diagnoses Not on filedocumented in this encounter Additional Health Concerns Assessment Noted Time PHQ-9 Depression Total Score: 0 02/14/20 6:31 PM CDT documented as of this encounter Care Teams Briar Wood Sorter Relationship Specialty Start Date End Date Kendall Ayala MD [address] [address] PCP - General INTERNAL MEDICINE 12/16/23 documented as of this encounter
--- OUTSIDE RECORDS SUMMARY | 2024-09-06 13:30 | XMS_ITS | Clinical Summary ---
Author Organization [facility] Address [address] [place] [address] Phone Care Team Providers Care Tape Librarian Name Role Phone Unavailable Primary Care Provider [...] Sex Assigned at Female 03/24/2024 11:19 AM NURSE MANAGER Legal Sex Female 5:52 AM NURSE MANAGER Gender Identity Female 03/24/2024 11:19 AM NURSE MANAGER Sexual Orientation Not on file Occupation Industry Job Start Date Job End Date Not on file Not on file Not on file Not on file Last Filed Vital Signs Vital Sign Reading Time Taken Comments Blood Pressure 110/78 02/21/2017 1:56 PM CDT Pulse 68 05/27/2013 7:00 AM NURSE MANAGER Temperature 36.7 C (98 F) 05/27/2013 7:00 AM NURSE MANAGER Respiratory Rate 20 05/27/2013 7:00 AM NURSE MANAGER Oxygen Saturation 100% 05/25/2013 12:59 AM NURSE MANAGER Inhaled Oxygen Concentration - - Weight 54.4 [...] has been evaluated with computer assisted technology. OUTPATIENT PSYCHIATRIST: SEE COMMENT 2016 10:55 AM CDT [facility] Comment: MMW, CT(ASCP) CT screening location: [place] [address] Administration MICHEL Maynard [facility] REVIEW OUTPATIENT PSYCHIATRIST: SEE COMMENT 03/01/2017 10:55 AM CDT [facility] Comment: MLO, CT(ASCP) CT screening location: [place] [address] Administration MICHEL Maynard146 HPV E6/E7 Detected(A) Not Detected 03/01/2017 10:55 AM CDT [facility] Comment: This test was performed using the APTIMA HPV Assay ([employer] This assay detects E6/E7 viral messenger RNA (mRNA) from 14 high-risk HPV types (16,18,31,33,35,39,45,51,52,56,58,59,66,68). Genital SWAB OF ENDOCERVIX / Unknown Collection / Unknown 02/21/2017 2:31 PM CDT 02/21/2017 5:27 PM CDT Narrative [facility] - 03/01/2017 10:55 AM CDT Performing Organization Information: Site ID: [id number] Name: [facility] Address: [address] [address] MICHEL [place] [address] Director: Jonel Pang MD Amanda Rodriguez NP PATHOLOGY/CYTOLOGY ORDERABLES F inal Result [facility] from Last 3 Months or Most Recently Relevant to Health Maintenance Insurance [facility] BLUE ACCESS/TRUE BLUE PPO Advance Directives For more information, please contact: [phone] * Full Code (Latest Code Status on [...]
--- OUTSIDE RECORDS SUMMARY | 2024-09-06 13:30 | XMS_ITS | Clinical Summary ---
Author Organization [facility] Address [address] [place] [address] Phone Care Team Providers Care Manager Behavioral Name Role Phone Provider, None Primary Care [...] on file Legal Sex Female 8:01 AM TEAMSITE DEVELOPER Gender Identity Not on file Sexual Orientation Not on file Last Filed Vital Signs Vital Sign Reading Time Taken Comments Blood Pressure 121/70 03/10/2016 9:38 AM TEAMSITE DEVELOPER Pulse 64 03/10/2016 9:45 AM TEAMSITE DEVELOPER Temperature 35.8 C (96.5 F) 03/10/2016 8:10 AM TEAMSITE DEVELOPER Respiratory Rate 14 03/10/2016 8:10 AM TEAMSITE DEVELOPER Oxygen Saturation 100% 03/10/2016 9:45 AM TEAMSITE DEVELOPER Inhaled Oxygen Concentration - - Weight 53.5 kg (118 lb) 03/10/2016 8:10 AM TEAMSITE DEVELOPER Height 157.5 cm (5' 2 ) 03/10/2016 8:10 AM TEAMSITE DEVELOPER Body Mass Index 21.58 03/10/2016 8:10 AM TEAMSITE DEVELOPER Plan of Treatment Not on file Care Teams Manager Behavioral Relationship Specialty Start Date End Date Provider, None [place] PCP - General 03/10/16
--- OUTSIDE RECORDS SUMMARY | 2024-09-06 13:30 | XMS_ITS | Clinical Summary ---
Author Organization [facility] Address [address] [place] [address] Care Team Providers Care Train Control Electronic Technician Name Role Phone Evangelista Waldrop MD Primary Care Provider [phone] Source Comments [facility],non-owned Affiliates and Associated Physician Practices is amultiple site organization consisting of ambulatory clinics and hospital sitesin [place], [place], [place] and [place]. This disclosure is being madepursuant to the Care Everywhere program and may not contain all information available regarding this patient. Last updated 18.[facility] [employer] Social History Tobacco Use Types Packs/Day Years Used Date Smoking Tobacco: Never Assessed Comments Unknown Sex and Gender Information Value Date Recorded Sex Assigned at Not on file Legal Sex Female 4:52 AM BATTER SCALER Gender Identity Not on file Sexual Orientation [...] age to complete this topic Care Teams Train Control Electronic Technician Relationship Specialty Start Date End Date Evangelista Waldrop MD [address] [facility] [address] [facility] [address] [place] [address] PCP - General Family Medicine 03/22/19
--- OUTSIDE RECORDS SUMMARY | 2024-09-06 13:30 | XMS_ITS | Clinical Summary ---
Author Organization [facility] Address [facility] [place] [address] Care Team Providers Care Community Health Promoter Name Role Phone Kendall Ayala MD Primary Care Provider [phone] Allergies No known active allergies Medications Albuterol-Budeso [...] Type Department Care Team Description 09/05/[address] [place], [place] [id number] Kendall Ayala MD Appointment Request 09/05/2024 [facility] [place] [address] [facility] [address] [place] [address] Kendall Ayala MD Chest Pain from Last [...] Sex Assigned at Female 04/02/2024 8:01 AM DISTILLING DEPARTMENT SUPERVISOR Legal Sex Female 4:07 PM CDT Gender Identity Female 04/02/2024 8:01 AM DISTILLING DEPARTMENT SUPERVISOR Sexual Orientation Straight 04/02/2024 8: 01 AM DISTILLING DEPARTMENT SUPERVISOR Last Filed Vital Signs Vital Sign Reading Time Taken Comments Blood Pressure 128/76 03/14/2024 10:36 AM DISTILLING DEPARTMENT SUPERVISOR Pulse 93 03/14/2024 10:36 AM DISTILLING DEPARTMENT SUPERVISOR Temperature 36.5 C (97.7 F) 03/14/2024 10:36 AM DISTILLING DEPARTMENT SUPERVISOR Respiratory Rate 18 03/14/2024 10:36 AM DISTILLING DEPARTMENT SUPERVISOR Oxygen Saturation 100% 03/14/2024 10:36 AM DISTILLING DEPARTMENT SUPERVISOR Inhaled Oxygen Concentration - - Weight 58.1 kg (128 lb) 03/14/2024 10:36 AM DISTILLING DEPARTMENT SUPERVISOR Height 157.5 cm (5' 2 ) 03/14/2024 10:36 AM DISTILLING DEPARTMENT SUPERVISOR Body Mass Index 23.41 03/14/2024 10:36 AM DISTILLING DEPARTMENT SUPERVISOR Plan of Treatment Health Maintenance Due Date [...] 5 season) 2024 04/13/2021, 07/10/2020 PHQ-2 (Physician [place]) 05/02/2024 02/14/2024 Annual Physical 02/13/2025 02/14/2024 Mammogram [...] JAGDEEP DAYANARA DIGI Routine 03/22/2024 10:30 AM DISTILLING DEPARTMENT SUPERVISOR Encounter for screening mammogram for malignant neoplasm of breast HEPATITIS C ANTIBODY Routine 02/14/2024 3:53 PM CDT Annual physical exam Establishing care with new doctor, encounter for General medical exam Encounter for hepatitis C screening test for low risk patient from Last 3 Months or Most Recently Relevant to Health Maintenance Results * MG SCREENING W JAGDEEP DAYANARA DIGI (03/22/2024 10:30 AM DISTILLING DEPARTMENT SUPERVISOR) Anatomical Region Laterality Modality Breast Bilateral Mammography 04/03/2024 1:25 PM DISTILLING DEPARTMENT SUPERVISOR Impressions 04/03/2024 1:27 PM DISTILLING DEPARTMENT SUPERVISOR IMPRESSION: No mammographic evidence of malignancy. RECOMMENDATION: Routine ScreeningBilateral OVERALL IMAGING ASSESSMENT: ACR BI-RADS 1 - NEGATIVE. Ordered By: KENDALL AYALA Interpreted By: Benson Ramirez, 04/03/2024 1:25 PM Narrative 04/03/2024 1:27 PM DISTILLING DEPARTMENT SUPERVISOR [facility] [address] [place] [address] EXAMINATION: MG SCREENING W JAGEDEP OSBORN INDICATIONS: Screening TECHNIQUE: Digital full field [...] VE NON-REACT AMAURI 02/14/2024 10:22 PM CDT [facility] Comment: ANTIBODIES TO HCV NOT DETECTED. DOES NOT EXCLUDE THE POSSIBILITY OF EXPOSURE TO HCV. 02/14/2024 3:53 PM CDT us Kendall Ayala MD LABORATORY Final Result [facility] [address] [place] [address], [id number] from Last 3 Months or Most Recently Relevant to Health Maintenance Insurance [facility] Care Teams Community Health Promoter Relationship Specialty Start Date End Date Kendall Ayala MD [address] [address] PCP - General INTERNAL MEDICINE 12/16/23
--- OUTSIDE RECORDS SUMMARY | 2024-09-06 13:30 | XMS_ITS | Encounter Summary ---
Author Organization [facility] Address [address] [place] [id number] Care Team Providers Care Inventory Auditor Name Role Phone Kendall Ayala MD Primary Care Provider [phone] Reason for Visit * Reason Onset Date Comments Appointment Request 09/05/2024 Encounter Details Date Type Department Care Team (Late st Contact Info) Description 09/05/2024 Telephone [facility] Multispecialty Care [facility] [address] [place] [address] [address] [place] [address] [place] [address] [place] [address] [address] [place], [place] [id number] Appointment Request Social History Tobacco Use Types [...] Sex Assigned at Female 04/02/2024 8:01 AM MEDICAL DOCTOR Legal Sex Female 4:07 PM CDT Gender Identity Female 04/02/2024 8:01 AM MEDICAL DOCTOR Sexual Orientation Straight 04/02/2024 8: 01 AM MEDICAL DOCTOR documented as of this encounter Progress Notes [...] documented as of this encounter Care Teams Inventory Auditor Relationship Specialty Start Date End Date Kendall Ayala MD [address] [address] PCP - General INTERNAL MEDICINE 12/16/23 documented as of this encounter
--- OUTSIDE RECORDS SUMMARY | 2024-09-06 13:30 | XMS_ITS | Encounter Summary ---
Author Organization [facility] Address [address] [place] [address] Care Team Providers Care Data Reduction Technician Name Role Phone Kendall Ayala MD Primary Care Provider [phone] Reason for Visit * Reason Onset Date Comments Chest Pain 09/05/2024 Encounter Details Date Type Department Care Team (Late st Contact Info) Description 09/05/2024 Telephone [facility] Multispecial[facility] - [place] [address] [place] [address] [address] [place] [address] Kendall Ayala MD [address] [facility] [address] [place] [address] Chest Pain Social History Tobacco [...] Sex Assigned at Female 04/02/2024 8:01 AM DESK TOP PUBLISHER Legal Sex Female 4:07 PM CDT Gender Identity Female 04/02/2024 8:01 AM DESK TOP PUBLISHER Sexual Orientation Straight 04/02/2024 8: 01 AM DESK TOP PUBLISHER documented as of this encounter Progress Notes [...] documented as of this encounter Care Teams Data Reduction Technician Relationship Specialty Start Date End Date Kendall Ayala MD [address] [facility] [address] [place] [address] PCP - General INTERNAL MEDICINE 12/16/23 documented as of this encounter
[2024-09-06] MEDS: DOXYCYCLINE HYCLATE 100 MG TABLET PO (14:36)
[2024-09-06 14:39] VITALS: BP 124/69; PULSE 63; RESP 19; O2SAT 100
== END 2024-09-06 14:45 | disposition home or self-care (01) ==
PROVIDERS: Emergency Provider Student in an Organized Health Care Education/Training Program
DX: R07.9 Chest pain, unspecified (principal); J18.9 Pneumonia, unspecified organism
CPT/HCPCS: 36415; 71046; 80053; 83690; 84484; 85025; 85610; 85730; 93005; 96361; 96374; 96375; 99284; A9270; J1885; J7120